=== PATIENT | female | born 1970 | race Two or more races ===

== ENCOUNTER 2024-06-23 09:00 | Outpatient (CLI) | payer OTHER | END 2024-06-23 09:07 | disposition home or self-care (01) | LOC: MAMO-SONO 09:00 | PROVIDERS: ATTEND Internal Medicine | DX: N64.4 Mastodynia (principal); R92.8 Other abnormal and inconclusive findings on diagnostic imaging of breast; Z12.31 Encounter for screening mammogram for malignant neoplasm of breast ==

== ENCOUNTER → 2024-08-20 09:31 | Outpatient (CLI) | payer OTHER | END | disposition home or self-care (01) | LOC: NUCLEAR 09:31 | PROVIDERS: ATTEND Internal Medicine | DX: I87.2 Venous insufficiency (chronic) (peripheral) (principal) ==

== ENCOUNTER 2024-09-16 11:33 | Outpatient (CLI) | payer OTHER | END 2024-09-16 12:48 | disposition home or self-care (01) | LOC: TOM 11:33 | PROVIDERS: ATTEND Surgery | DX: F17.210 Nicotine dependence, cigarettes, uncomplicated (principal); R06.02 Shortness of breath ==

== ENCOUNTER 2024-10-15 07:08 | Outpatient (CLI) | payer OTHER | END 2024-10-15 07:09 | disposition home or self-care (01) | LOC: NUCLEAR 07:08 | PROVIDERS: ATTEND Internal Medicine | DX: D16.7 Benign neoplasm of ribs, sternum and clavicle (principal) | CPT/HCPCS: 78306; A9503 ==

== ENCOUNTER 2024-11-27 07:43 | Emergency (ER) | payer OTHER ==
[~2024-11-27] VITALS: Ht 152.4 cm; Wt 68.0 kg
[2024-11-27] MEDS ORDERED: LANTUS SOL100 UNIT/1 (07:52)
[2024-11-27] MEDS ORDERED: BAYER CHILDREN'81 MG (07:53)
[2024-11-27] MEDS ORDERED: ATORVASTATIN CA10 MG (07:53)
[2024-11-27] MEDS ORDERED: 0.9 % SODIUM CHLORIDE 1,000 ML IV STA (08:28)
[2024-11-27] MEDS ORDERED: ONDANSETRON HCL 2 MG/ML VIAL IV STA (08:28)
[2024-11-27 09:34] LABS: BASO % 0.4 % (0.1-1.2); EOS # 0.04 (0.04-0.54); EOS % 0.2 % (0.7-7.0); LYMPH # 3.44 (1.18-3.74); LYMPH % 21.1 % (19.3-53.1); MEAN PLATELET VOLUME 9.00 fl (9.4-12.4); MONO # 0.82 (0.24-0.82); MONO % 5.0 % (4.7-12.5); NEUT # 11.83 (1.56-6.13); NEUT % 72.6 % (34.0-71.1); RED CELL DISTRIBUTION WIDTH 13.9 % (11.6-14.4)
[2024-11-27 09:55] LABS: URINE APPEARANCE Clear; URINE BACTERIA 464.3 uL (0.0-1933); URINE BILIRRUBIN Negative (NEGATIVE); URINE BLOOD Large; URINE COLOR Yellow; URINE EPITHELIAL CELLS 16.6 uL (0.0-38.8); URINE GLUCOSE Negative (NEGATIVE); URINE KETONE Negative (NEGATIVE); URINE LEUKOCYTE Negative; URINE NITRATE Negative; URINE RBC 46.3 uL (0.0-20.8); URINE UROBILINOGEN 1.0 E.U./dl; URINE WBC 9.5 uL (0.0-23.2)
[2024-11-27 10:00] LABS: ALT/SGPT 47.0 U/L (12-78); AST/SGOT 31.0 U/L (15-37); BILIRUBIN TOTAL 0.4 mg/dL (0.3-1.2); BUN CREA RATIO 15.0 (7.0-25.0); CREATININE SERUM 0.86 mg/dL (0.55-1.02); GFR 68.51; GLOBULINA 4.3 G/DL (2.4-3.5); GLUCOSE FASTING 177.0 mg/dL (65-100); OSMOLALITY SERUM 291.0 MOSM/KG (275-295)
[2024-11-27 10:12] LABS: URINE CAST 0.73 uL (0.0-1.40); URINE PROTEIN 100 (NEGATIVE)
[2024-11-27] MEDS ORDERED: FAMOTIDINE/PF 20 MG/2 ML VIAL IV PUSH ONE (14:30)
[2024-11-27 15:46] VITALS: BP 127/71; O2SAT 100
== END 2024-11-27 15:48 | disposition home or self-care (01) ==
LOC: ER 09:30
PROVIDERS: Emergency Medicine
DX: K29.70 Gastritis, unspecified, without bleeding (principal); R11.10 Vomiting, unspecified; I10 Essential (primary) hypertension; E11.9 Type 2 diabetes mellitus without complications; Z79.4 Long term (current) use of insulin
CPT/HCPCS: 36415; 96365; 96366; 99282; J2405; J3490; J7030

== ENCOUNTER 2024-11-29 10:34 | Emergency (ER) | payer OTHER ==
[~2024-11-29] VITALS: Ht 152.4 cm; Wt 68.0 kg
[~2024-11-29 10:34] MED LIST: ATORVASTATIN CA10 MG; BAYER CHILDREN'81 MG; LANTUS SOL100 UNIT/1
[2024-11-29] MEDS ORDERED: CARAFATE1 GM (11:57)
[2024-11-29] MEDS ORDERED: PERCOCET 5-3251 EACH (11:58)
[2024-11-29] MEDS ORDERED: FAMOTIDINE/PF 20 MG/2 ML VIAL IV PUSH ONE (13:15)
[2024-11-29] MEDS ORDERED: 0.9 % SODIUM CHLORIDE 1,000 ML IV SCH (13:15)
[2024-11-29] MEDS ORDERED: METRONIDAZOLE/SODIUM CHLORIDE 500 MG/100 ML PIGGYBACK IV ONE (13:15)
[2024-11-29] MEDS ORDERED: HYOSCYAMINE SULFATE 0.125 MG TAB.SUBL SL ONE ×2 (13:15→21:30)
[2024-11-29 13:56] LABS: BASO % 0.2 % (0.1-1.2); EOS # 0.02 (0.04-0.54); EOS % 0.1 % (0.7-7.0); LYMPH # 3.34 (1.18-3.74); LYMPH % 23.2 % (19.3-53.1); MEAN PLATELET VOLUME 9.00 fl (9.4-12.4); MONO # 0.93 (0.24-0.82); MONO % 6.5 % (4.7-12.5); NEUT # 10.03 (1.56-6.13); NEUT % 69.7 % (34.0-71.1); RED CELL DISTRIBUTION WIDTH 13.4 % (11.6-14.4)
[2024-11-29 14:20] LABS: BUN CREA RATIO 14.0 (7.0-25.0); CREATININE SERUM 0.78 mg/dL (0.55-1.02); GFR 76.68; GLUCOSE FASTING 111.0 mg/dL (65-100); OSMOLALITY SERUM 289.0 MOSM/KG (275-295)
[2024-11-29] MEDS ORDERED: ONDANSETRON HCL 2 MG/ML VIAL IV STA (19:00)
== END 2024-11-29 21:59 | disposition home or self-care (01) ==
LOC: ER 10:34
PROVIDERS: Emergency Medicine
DX: K52.89 Other specified noninfective gastroenteritis and colitis (principal); E11.9 Type 2 diabetes mellitus without complications; Z79.4 Long term (current) use of insulin
CPT/HCPCS: 36415; 96365; 96366; 99282; J2405; J3490; J7030